=== PATIENT | female | born 1990 | race Caucasian/White ===

== ENCOUNTER 2017-09-28 16:36 | Emergency (ER) | payer SELFPAY ==
[~2017-09-28] VITALS: Ht 172.7 cm; Wt 64.0 kg
[2017-09-28 16:52] VITALS: BP 130/84
[2017-09-28 17:34] LABS: BASOPHILS # (AUTO) 0.03 x10^3/uL (0-0.1); BASOPHILS % (AUTO) 0 % (0-1); EOSINOPHILS # (AUTO) 0.01 x10^3/uL (0-0.4); EOSINOPHILS % (AUTO) 0 % (1-7); LYMPHOCYTES # (AUTO) 1.45 x10^3/uL (1-3.4); LYMPHOCYTES % (AUTO) 16 % (22-44); MD NO; MEAN CORPUSCULAR HEMOGLOBIN 33.3 pg (27.0-34.8); MEAN CORPUSCULAR HGB CONC 34.4 g/dL (32.4-35.8); MEAN CORPUSCULAR VOLUME 96.5 fL (80-100); MEAN PLATELET VOLUME 9.1 fL (7.4-10.4); MONOCYTES % (AUTO) 6 % (2-9); NEUTROPHILS # (AUTO) 6.97 x10^3/uL (1.8-6.8); NEUTROPHILS % (AUTO) 78 % (42-75); PLATELET COUNT 228 x10^3/uL (130-400); RED BLOOD COUNT 3.97 x10^6/uL (3.82-5.3); RED CELL DISTRIBUTION WIDTH 12.5 % (9.6-15.2)
[2017-09-28 17:38] LABS: ALBUMIN 4.3 g/dL (3.4-5.0); ANION GAP 12 mmol/L (5-15); CALCIUM 8.6 mg/dL (8.5-10.1); CHLORIDE 104 mmol/L (98-107)
[2017-09-28 17:44] LABS: ALANINE AMINOTRANSFERASE 30 U/L (12-78); ALKALINE PHOSPHATASE 51 U/L (45-117); BILIRUBIN,TOTAL 0.8 mg/dL (0.2-1.0); CREATININE 0.84 mg/dL (0.55-1.02); FREE T4 (FREE THYROXINE) 1.08 ng/dL (0.76-1.46); TOTAL PROTEIN 8.2 g/dL (6.4-8.2)
[2017-09-28] MEDS ORDERED: ONDANSETRON ODT 4 MG ONE (18:28)
[2017-09-28] MEDS ORDERED: ONDANSETRON ODT 4 MG PO ONE (18:30)
[2017-09-28] MEDS ORDERED: MAALOX/HYOSCYAMINE/LIDOCAINE 45 ML BTL ONE (18:59)
[2017-09-28] MEDS ORDERED: MAALOX/HYOSCYAMINE/LIDOCAINE 45 ML BTL PO ONE (19:00)
== END 2017-09-28 20:10 | disposition home or self-care (01) ==
LOC: ED 19:45
DX: R10.13 Epigastric pain (principal); R07.89 Other chest pain; R10.12 Left upper quadrant pain; E05.90 Thyrotoxicosis, unspecified without thyrotoxic crisis or storm
CPT/HCPCS: 36415; 80053; 84439; 84443; 84703; 85025; 93005; 99285; Q0162